=== PATIENT | female | born 1960 | race Caucasian/White ===

== ENCOUNTER 2019-01-03 17:56 | Emergency (ER) | payer SELFPAY ==
[~2019-01-03] VITALS: Ht 160 cm; Wt 74.5 kg
[2019-01-03 18:11] VITALS: BP 200/91; PULSE 68; RESP 18; Ht 160 cm; Wt 74.5 kg
== END 2019-01-03 19:16 | disposition left against medical advice (07) ==
LOC: FTE 17:56
DX: Z53.21 Procedure and treatment not carried out due to patient leaving prior to being seen by health care provider (principal)